=== PATIENT | male | born 1990 | race Caucasian/White ===

== ENCOUNTER 2017-02-11 17:27 | Emergency (ER) | payer BC, MEDICAID ==
[2017-02-11] MEDS ORDERED: Penicillin VK TAB* 250 MG PO ONE (19:15)
[2017-02-11] MEDS ORDERED: HYDROcodone/ACETAMIN 5-325 MG* 1 TAB PO ONE (19:15)
[2017-02-11 19:42] VITALS: BP 137/79
--- NOTE | 2017-02-11 20:34 | ED ---
Throat Pain/Nasal Congestion - HPI Summary HPI Summary: Patient arrives to ED with CC of pain over right molar radiating to the jaw and ear. Denies trismus, drooling or dysphagia. Pain is 9/10, sharp and throbbing. Denies airway compromise or SOB. Denies ear pain, eye pain, blurry vision or double vision. Otherwise healthy. Pain is worse with chewing and cold drinks, better with ibuprofen, but only improves slightly. Patient denies dental care for several years. He states he does not like dentists and is awaiting to get all his teeth pulled on next visit. He denies smoking history, but endorses chewing tobacco regularly. Denies fever. He has tried Ibuprofen 800mg without relief. Pain and inflammation has been present for 2 weeks. - History of Current Complaint Chief Complaint: EDDentalPain Time Seen by Provider: 02/11/17 18:39 Hx Obtained From: Patient Onset/Duration: Sudden Onset Severity: Moderate Associated Signs And Symptoms: Positive: Negative Cough: Nonproductive - Epiglottits Risk Factors Epiglottis Risk Factors: Negative - Allergies/Home Medications Allergies/Adverse Reactions: Allergies Allergy/AdvReac Type Severity Reaction Status Date / Time No Known Allergies Allergy Verified 02/11/17 19:34 PMH/Surg Hx/FS Hx/Imm Hx Previously Healthy: Yes Endocrine/Hematology History: Denies: Hx Diabetes Cardiovascular History: Denies: Hx Cardiac Arrest, Hx Hypertension - Immunization History Hx Pertussis Vaccination: No Immunizations Up to Date: Yes Infectious Disease History: No Infectious Disease History: Denies: Traveled Outside the [place] in Last 30 Days - Family History Known Family History: Positive: None, Other - cancer - grandfather - Social History Occupation: Employed Full-time Lives: With Family Alcohol Use: None Hx Substance Use: No Substance Use Type: Reports: None Hx Tobacco Use: No Smoking Status (MU): Never Smoked Tobacco Do You Chew or Dip Tobacco: No Review of Systems Constitutional: Negative Eyes: Negative Positive: Dental Pain Cardiovascular: Negative Respiratory: Negative Positive: no symptoms reported, see HPI Neurological: Negative Psychological: Normal All Other Systems Reviewed And Are Negative: Yes Physical Exam Triage Information Reviewed: Yes Vital Signs On Initial Exam: Initial Vitals Temp Pulse Resp BP Pulse Ox 98.1 F 73 20 142/99 99 02/11/17 17:35 02/11/17 17:35 02/11/17 17:35 02/11/17 17:35 02/11/17 17:35 Vital Signs Reviewed: Yes Appearance: Positive: Well-Appearing, Well-Nourished Skin: Positive: Warm, Skin Color Reflects Adequate Perfusion Head/Face: Positive: Normal Head/Face Inspection Eyes: Positive: EOMI, HALEY, Conjunctiva Clear Dental: Positive: Percussion Tenderness @, Gross Decay/Caries @, Dental Fracture @, Abscess @, Other - No dental abscess or lesions seen over area of concern. Erythema at site of pain. No drainage from area. Several dental caries, cavities, crowding and broken teeth throughout. Pain on palpation over mandible. No TMJ tenderness. No pain with opening and closing mouth. Poor dental hygiene. Neck: Positive: Supple Respiratory/Lung Sounds: Positive: Clear to Auscultation, Breath Sounds Present Cardiovascular: Positive: RRR, Pulses are Symmetrical in both Upper and Lower Extremities Musculoskeletal: Positive: Normal, Strength/ROM Intact Neurological: Positive: Speech Normal Psychiatric: Positive: Normal Diagnostics - Vital Signs Vital Signs Temp Pulse Resp BP Pulse Ox 02/11/17 19:41 98.6 F 58 137/79 02/11/17 17:37 97.9 F 73 20 142/85 100 02/11/17 17:35 98.1 F 73 20 142/99 99 - Laboratory Lab Statement: Any lab studies that have been ordered have been reviewed, and results considered in the medical decision making process. EENT Course/Dx - Course Course Of Treatment: No dental abscess or lesions seen over area of concern. Erythema at site of pain. No drainage from area. Several dental caries, cavities, crowding and broken teeth throughout. Pain on palpation over mandible. No TMJ tenderness. No pain with opening and closing mouth. Poor dental hygiene and outpatient dental care. Will treat for possible dental infection/abscess based on symptoms of pain and radiation to jaw and ear. No allergies. Will treat with Penicillin. Patient to follow up immediately with dentist. 2 days hydrocodone given to patient. - Differential Diagnoses Differential Diagnoses: Dental Abscess, Dental Caries, Mandibular/Maxillary Trauma, Odontogenic Pain - Diagnoses Provider Diagnoses: Dental abscess - Provider Notifications Instructed by Provider To: Admit As Inpatient Discharge - Discharge Plan Condition: Stable Disposition: HOME Prescriptions: Hydrocodone-Acetaminophen [Hydrocodone/Acetaminophen 5-325 mg] 1 tab PO Q6H PRN #8 tab MDD 4 PRN Reason: Pain Penicillin VK TAB 500 MG(NF) [Penicillin VK 500 mg Tab(NF)] 500 mg PO QID #28 tab MDD 4 Patient Education Materials: Dental Abscess (ED) Referrals: Jaclyn NGUYEN,Valeriy Lea [Primary Care Provider] - Additional Instructions: You have been diagnosed with dental pain with possible infection: Antibiotics as prescribed to you. Penicillin four times daily for 7 days. To minimize the potential for gastrointestinal intolerance, Pencillin should be taken at the start of a meal. If you have any questions about your medication, please contact us or ask your pharmacist. Salt water rinses several times per day will improve healing time. Ibuprofen 600mg three times daily with meals for discomfort. For pain not well controlled with ibuprofen, use pain medication. May use lollicaines over the area for comfort. Follow up with a dentist for routine care to prevent recurrence of infections. If fever, worsening pain or swelling develops, see your PCP, dentist or come back to the Emergency Department. Images - Images Dental: 1 - dental inflammation and possible abscess with pain
== END 2017-02-11 19:41 | disposition home or self-care (01) ==
LOC: ED 17:27
DX: K04.7 Periapical abscess without sinus (principal); K08.89 Other specified disorders of teeth and supporting structures
CPT/HCPCS: 99282; A9270-GY

== ENCOUNTER 2017-03-16 17:05 | Emergency (ER) | payer BC ==
[2017-03-16] MEDS ORDERED: Ondansetron ODT TAB* 4 MG PO ONE (18:28)
[2017-03-16] MEDS ORDERED: Ibuprofen TAB* 600 MG PO ONE (18:34)
[2017-03-16 20:32] VITALS: BP 112/73
--- NOTE | 2017-03-17 15:44 | ED ---
Ha Guzman Auryana, scribed for Oziel Robledo MD on 03/16/17 at 1956 . HPI Febrile Illness - HPI Summary HPI Summary: 26 year old male presents with fever starting this morning upon waking up. He also has a sore throat, pain with swallowing, KATZ, diffuse myalgia, nausea, and neck pain but denies any vomiting, diarrhea, cough, or any rashes. He does report a sick sister with strep and states that he has been around her often. He denies any significant past medical history. His PCP is Dr. Anaya ([place]). SHx is significant for alcohol use but denies any tobacco use. - History of Current Complaint Chief Complaint: EDFever Time Seen by Provider: 03/16/17 17:49 Hx Obtained From: Patient Onset/Duration: Started Days Ago - lastnight, Still Present Timing: Constant Initial Severity: Mild Current Severity: Moderate Pain Intensity: 5 Pain Scale Used: 0-10 Numeric Associated Signs and Symptoms: Headache, Myalgia, Sore Throat, Stiff Neck - Allergy/Home Medications Allergies/Adverse Reactions: Allergies Allergy/AdvReac Type Severity Reaction Status Date / Time No Known Allergies Allergy Verified 03/16/17 18:41 PMH/Surg Hx/FS Hx/Imm Hx Endocrine/Hematology History: Denies: Hx Diabetes Cardiovascular History: Denies: Hx Cardiac Arrest, Hx Hypertension Infectious Disease History: No Infectious Disease History: Denies: Traveled Outside the in Last 30 Days - Family History Known Family History: Positive: Other - cancer - grandfather - Social History Occupation: Employed Full-time Lives: With Family Alcohol Use: None Hx Substance Use: No Substance Use Type: Reports: None Hx Tobacco Use: No Smoking Status (MU): Never Smoked Tobacco Review of Systems Positive: Fever. Negative: Chills Eyes: Negative Positive: Sore Throat, Other - pain with swallowing Cardiovascular: Negative Negative: Chest Pain Respiratory: Negative Negative: Shortness Of Breath, Cough Positive: Nausea. Negative: Abdominal Pain, Vomiting, Diarrhea Genitourinary: Negative Negative: dysuria, hematuria Positive: Myalgia - diffuse. Negative: Edema Skin: Negative Negative: Rash Neurological: Other - no dizziness Positive: Headache Psychological: Normal All Other Systems Reviewed And Are Negative: Yes Physical Exam - Summary Physical Exam Summary: Constitutional: Well-developed, Well-nourished, Alert. (-) Distressed Skin: Warm, Dry HENT: Normocephalic; Atraumatic. Exudative pharyngitis. Tonsils have erythema with exudate. Eyes: Conjunctiva normal. Neck: Musculoskeletal ROM normal neck. (-) JVD, (-) Stridor, (-) Tracheal deviation. (+) anterior cervical lymphadenopathy, (-) meningismus Cardio: Rhythm regular, rate normal, Heart sounds normal; Intact distal pulses; The pedal pulses are 2+ and symmetric. Radial pulses are 2+ and symmetric. (-) Murmur Pulmonary/Chest wall: Effort normal. (-) Respiratory distress, (-) Wheezes, (-) Rales Abd: Soft, (-) Tenderness, (-) Distension, (-) Guarding, (-) Rebound Musculoskeletal: (-) Edema Lymph: (-) Cervical adenopathy Neuro: Alert, Oriented x3 Psych: Mood and affect Normal Triage Information Reviewed: Yes Vital Signs On Initial Exam: Initial Vitals Temp Pulse Resp BP Pulse Ox 102.2 F 113 18 111/79 99 03/16/17 17:10 03/16/17 17:10 03/16/17 17:10 03/16/17 17:10 03/16/17 17:10 Vital Signs Reviewed: Yes Diagnostics - Vital Signs Vital Signs Temp Pulse Resp BP Pulse Ox 03/16/17 17:10 102.2 F 113 18 111/79 99 - Laboratory Lab Statement: Any lab studies that have been ordered have been reviewed, and results considered in the medical decision making process. Re-Evaluation - Re-Evaluation First Eval Re-Evaluation Time: 20:28 Comment: Pt requests discharge. Discussed results, pt understands his discharge plan Course/Dx - Course Assessment/Plan: 26 year old male presents with fever starting this morning upon waking up. He also has a sore throat, pain with swallowing, KATZ, diffuse myalgia, nausea, and neck pain but denies any vomiting, diarrhea, cough, or any rashes. He does report a sick sister with strep and states that he has been around her often. Rapid strep is negative. Negative influenza screen. Pt requests discharge in the ED, and is diagnosed with pharyngitis with exudate. We will await cultures for Tx. Pt is tolerate PO. He is instructed to follow up with his PCP in the next few days. He understands his discharge plan. - Febrile Illness Differential Diagnoses: Other: - VIRAL PHARYNGITIS; STREP - Diagnoses Provider Diagnoses: Exudative pharyngitis Discharge - Discharge Plan Condition: Stable Disposition: HOME Patient Education Materials: Pharyngitis (ED) Referrals: Jaclyn NGUYEN,Valeriy Lea [Primary Care Provider] - 3 Days Additional Instructions: RETURN TO THE EMERGENCY DEPARTMENT FOR CHANGING OR WORSENING SYMPTOMS The documentation as recorded by the Ha hamlin Auryana accurately reflects the service I personally performed and the decisions made by me, Oziel Robledo MD.
== END 2017-03-16 20:31 | disposition home or self-care (01) ==
LOC: ED 17:05
DX: J02.9 Acute pharyngitis, unspecified (principal); R51 Headache; M79.1 Myalgia; M43.6 Torticollis
CPT/HCPCS: 87502; 87651; 99282; A9270-GY

== ENCOUNTER 2017-07-03 09:45 | Emergency (ER) | payer BC ==
[2017-07-03 09:52] VITALS: BP 114/56
--- NOTE | 2017-07-03 10:50 | RAD ---
Indication: Left middle finger injury. 3 views of left middle finger demonstrates fracture through the distal tuft of the distal phalanx of the third digit. Amputation of the soft tissue is noted. IMPRESSION: Amputation of the distal tip of the third digit with likely fracture of the distal tuft.
[2017-07-03] MEDS ORDERED: HYDROcodone/ACETAMIN 5-325 MG* 1 TAB PO ONE (11:27)
[2017-07-03] MEDS ORDERED: Cephalexin CAP* 500 MG PO ONE (12:14)
--- NOTE | 2017-07-03 12:30 | ED ---
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 + bleeding, + pain immediately. last tetanus within 2-3 years ago. no other complaints, injuries. Left middle finger. R handed - History of Current Complaint Chief Complaint: EDExtremityUpper Stated Complaint: CRUSH INJURY TO FINGER Time Seen by Provider: 07/03/17 12:06 Hx Obtained From: Patient, Family/Stock Worker And Deliverer - fiance sister Mechanism Of Injury: Direct Blow Onset/Duration: Started Hours Ago Timing: Constant Severity Initially: Severe Severity Currently: Moderate Pain Location: Finger - left middle Character: Sharp, Aching, Throbbing Aggravating Factor(s): Nothing Associated Signs & Symptoms: Positive: Swelling - Allergies/Home Medications Allergies/Adverse Reactions: Allergies Allergy/AdvReac Type Severity Reaction Status Date / Time No Known Allergies Allergy Verified 03/16/17 18:41 PMH/Surg Hx/FS Hx/Imm Hx Previously Healthy: Yes Endocrine/Hematology History: Denies: Hx Diabetes Cardiovascular History: Denies: Hx Cardiac Arrest, Hx Hypertension Infectious Disease History: No Infectious Disease History: Denies: Traveled Outside the [place] in Last 30 Days - Family History Known Family History: Positive: None, Other - cancer - grandfather - Social History Alcohol Use: None Hx Substance Use: No Substance Use Type: Reports: None Hx Tobacco Use: No Smoking Status (MU): Never Smoked Tobacco Review of Systems Positive: Arthralgia, Myalgia, Edema All Other Systems Reviewed And Are Negative: Yes Physical Exam - Summary Physical Exam Summary: tip of middle finger avulsed, approximately 1/4 of DIP, specimen not avialable, involving distal 1/3 of nail. nail bed intact, full ROM DIP, PIP without tenderness. + bleeding. Area soaked in warm soapt water, cleaned with hibiclens, dressed with xeroform covered with fluff, gauze, and cling wrap. tolerated well. Triage Information Reviewed: Yes Vital Signs On Initial Exam: Initial Vitals Temp Pulse Resp BP Pulse Ox 97.7 F 64 17 114/56 98 07/03/17 09:50 07/03/17 09:50 07/03/17 09:50 07/03/17 09:50 07/03/17 09:50 Vital Signs Reviewed: Yes Appearance: Positive: Well-Appearing, No Pain Distress - when finger at rest, Well-Nourished Skin: Positive: Warm, Skin Color Reflects Adequate Perfusion Head/Face: Positive: Normal Head/Face Inspection Musculoskeletal: Positive: Strength/ROM Intact - full ROMand strength of all fingers, wrist L hand, no snuff box tenderness. Neurological: Positive: Normal, Sensory/Motor Intact, Alert, Oriented to Person Place, Time - Dana Coma Scale Coma Scale Total: 15 Diagnostics - Vital Signs Vital Signs Temp Pulse Resp BP Pulse Ox 07/03/17 09:50 97.7 F 64 17 114/56 98 - Laboratory Lab Statement: Any lab studies that have been ordered have been reviewed, and results considered in the medical decision making process. Course/Dx - Course Course Of Treatment: radigoraph = fracture at DIP, ABX given, stressed importance of contining antibiotics, follow up with Ortho within 3-5 days for wound check, reviewed wound care. pain medicaiton given. - Diagnoses Differential Diagnosis/HQI/PQRI: Positive: Burn, Contusion, Fracture (Open) Provider Diagnoses: Open fracture of finger of left hand Discharge - Discharge Plan Condition: Good Disposition: HOME Prescriptions: Cephalexin CAP* [Keflex CAP*] 500 mg PO TID #30 cap oxyCODONE/Acetamin 5/325 MG* [Percocet 5/325 TAB*] 2 tab PO Q6H PRN #16 tab MDD 8 PRN Reason: Pain Patient Education Materials: Finger Fracture (ED) Forms: *Work Release Referrals: Jaclyn NGUYEN,Valeriy Lea [Primary Care Provider] - Sarah Joyner MD [Medical Doctor] - (FOllow up on Saturday for re-eval, may see any provider, referred by Essie Teresa ) Additional Instructions: - Keep dressing on until seen by Orthopedics, may be seen by any physician. May remove Saturday and re-dress as shown in ER - Percocet 1-2 as needed every 6 hours - tylenol/ motrin as needed for pain - return to ER with increased pain, fever, chills, decreased movement or redness - Do not get area wet - Take antibiotics as directed
== END 2017-07-03 12:47 | disposition home or self-care (01) ==
LOC: ED 09:45
DX: S62.603B Fracture of unspecified phalanx of left middle finger, initial encounter for open fracture (principal); W23.0XXA Caught, crushed, jammed, or pinched between moving objects, initial encounter; Y93.9 Activity, unspecified; Y92.9 Unspecified place or not applicable
CPT/HCPCS: 73140; 99282; A9270-GY

== ENCOUNTER 2018-02-09 22:21 | Emergency (ER) | payer BC ==
[2018-02-09 22:26] VITALS: BP 125/77
== END 2018-02-09 23:23 | disposition left against medical advice (07) ==
LOC: ED 22:21
DX: M54.9 Dorsalgia, unspecified (principal); Z53.21 Procedure and treatment not carried out due to patient leaving prior to being seen by health care provider

== ENCOUNTER 2018-11-17 11:45 | Emergency (ER) | payer BC ==
--- NOTE | 2018-11-17 13:49 | ED ---
Throat Pain/Nasal Congestion - HPI Summary HPI Summary: Patient is a 28-year-old male who presents emergency department for dental pain times several days. Patient states having some pain to his right bottom last molar and states that tooth broke last night and increased his pain. He denies fever, chills, nausea, vomiting, facial swelling. Has no past medical history. Is taking ibuprofen with no pain relief. Patient states he does have a dentist but has not called them yet. Symptoms are mild in severity. Touching affected area makes symptoms worse. Nothing makes symptoms better. - History of Current Complaint Chief Complaint: EDDentalPain Time Seen by Provider: 11/17/18 13:01 Hx Obtained From: Patient - Allergies/Home Medications Allergies/Adverse Reactions: Allergies Allergy/AdvReac Type Severity Reaction Status Date / Time No Known Allergies Allergy Verified 11/17/18 11:52 PMH/Surg Hx/FS Hx/Imm Hx Previously Healthy: Yes Endocrine/Hematology History: Denies: Hx Diabetes Cardiovascular History: Denies: Hx Cardiac Arrest, Hx Hypertension Infectious Disease History: No Infectious Disease History: Denies: Traveled Outside the [place] in Last 30 Days - Family History Known Family History: Positive: None, Other - cancer - grandfather - Social History Occupation: Employed Full-time Lives: Alone Alcohol Use: None Hx Substance Use: No Substance Use Type: Reports: None Hx Tobacco Use: No Smoking Status (MU): Never Smoked Tobacco Review of Systems Constitutional: Negative Negative: Fever, Chills Positive: Dental Pain Gastrointestinal: Negative Negative: Abdominal Pain, Vomiting Skin: Negative Neurological: Negative All Other Systems Reviewed And Are Negative: Yes Physical Exam Triage Information Reviewed: Yes Vital Signs On Initial Exam: Initial Vitals Temp Pulse Resp BP Pulse Ox 98.5 F 74 16 126/78 99 11/17/18 11:49 11/17/18 11:49 11/17/18 11:49 11/17/18 11:49 11/17/18 11:49 Vital Signs Reviewed: Yes Appearance: Positive: Well-Appearing - Pt. sitting on bed in NAD. Skin: Positive: Warm, Dry Head/Face: Positive: Normal Head/Face Inspection Eyes: Positive: Normal, EOMI, HALEY Dental: Positive: Other - Dental decay noted to the last bottom right molar. No drainable abscess. No swelling under tongue or submandibular edema. No trismus. No facial edema. Neck: Positive: Supple, Nontender, No Lymphadenopathy Neurological: Positive: Normal, CN Intact II-III Psychiatric: Positive: Affect/Mood Appropriate Diagnostics - Vital Signs Vital Signs Temp Pulse Resp BP Pulse Ox 11/17/18 11:49 98.5 F 74 16 126/78 99 - Laboratory Lab Statement: Any lab studies that have been ordered have been reviewed, and results considered in the medical decision making process. EENT Course/Dx - Course Course Of Treatment: Patient presenting for increased pain after dental fracture. He is afebrile and well-appearing. In general abscess on exam. Given prescriptions for penicillin and naproxen. Patient was given 1 dose of pain medication in the ER. Advised to call his dentist today for close follow- up appointment. Will return to the ER for increased pain, swelling, fever, vomiting or if concerned. - Differential Diagnoses Differential Diagnoses: Dental Abscess, Dental Caries, Gingivitis, James's Angina - Diagnoses Provider Diagnoses: Dental decay Discharge - Sign-Out/Discharge Documenting (check all that apply): Patient Departure Patient Received Moderate/Deep Sedation with Procedure: No - Discharge Plan Condition: Good Disposition: HOME Prescriptions: Naproxen [Naproxen 500 mg tab] 500 mg PO BID #20 tablet Penicillin VK 500 MG TAB(NF) [Penicillin VK 500 mg Tab] 500 mg PO QID #40 tab Patient Education Materials: Toothache (ED) Referrals: Jaclyn NGUYEN,Valeriy Lea [Primary Care Provider] - Additional Instructions: Call your dentist today for a close follow up appointment Take medication as directed Apply warm compresses to face to help with pain Can also take tylenol as directed for pain Return to ER for increased pain, fever, facial swelling or if concerned - Billing Disposition and Condition Condition: GOOD Disposition: Home
[2018-11-17] MEDS ORDERED: HYDROcodone/ACETAMIN 5-325 MG* 1 TAB PO ONE (13:55)
[2018-11-17 14:03] VITALS: BP 116/72
== END 2018-11-17 14:01 | disposition home or self-care (01) ==
LOC: ED 11:45
DX: K02.9 Dental caries, unspecified (principal)
CPT/HCPCS: 99281

== ENCOUNTER 2018-12-11 12:08 | Emergency (ER) | payer BC, MEDICAID ==
--- NOTE | 2018-12-11 14:09 | ED ---
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 Pt woke up at 0400 with abd pressure. He walked to the bathroom, and started vomiting and having a bowel movement simultaneously. He says he passed out and fell onto the floor. His temperature was 104 F. He crawled into the bath tub and and laid in cold water until he felt a little better. He went back to bed, and an hour later, the "same thing happened." His mom found him on the floor, and saw that there was a lot of fresh blood in the toilet. Associated sx : diaphoretic. He denies eating recent raw meat, untreated water. Pt denies any chills, erythema of eyes, sore throat, CP, SOB, cough, abdominal pain, dysuria, hematuria, myalgia, edema, rash. PCP is in [place]. - History of Current Complaint Chief Complaint: EDGIBleed Time Seen by Provider: 12/11/18 13:56 Stated Complaint: RECTAL BLEEDING, VOMITING PER MOM Hx Obtained From: Patient, Family/Senior Office Support Assistant Sosa - mom and fiancee Onset/Duration: Started Hours Ago, Still Present Timing: Constant Severity: Severe Current Severity: Severe Vaginal Bleeding Description: Bright Red Pain Intensity: 8 Associated Signs and Symptoms: Positive: Dizziness, Syncope, Nausea, Vomiting, Blood w/Stool, Diarrhea, Fever, Other: - pos: diaphoretic - Allergy/Home Medications Allergies/Adverse Reactions: Allergies Allergy/AdvReac Type Severity Reaction Status Date / Time No Known Allergies Allergy Verified 12/11/18 12:10 PMH/Surg Hx/FS Hx/Imm Hx Previously Healthy: Yes Endocrine/Hematology History: Denies: Hx Diabetes Cardiovascular History: Denies: Hx Cardiac Arrest, Hx Hypertension GI History: Denies: Hx Crohn's Disease Infectious Disease History: No Infectious Disease History: Denies: Traveled Outside the [place] in Last 30 Days - Family History Known Family History: Positive: Other - cancer - grandfather Family History: neg Fhx: UC, Crohn's - Social History Occupation: Unemployed - OTHER Lives: With Family Alcohol Use: None Hx Substance Use: No Substance Use Type: Reports: None Hx Tobacco Use: No Smoking Status (MU): Never Smoked Tobacco Review of Systems Positive: Fever, Skin Diaphoresis. Negative: Chills Negative: Erythema Negative: Sore Throat Negative: Chest Pain Negative: Shortness Of Breath, Cough Positive: Abdominal Pain, Vomiting, Diarrhea, Nausea, Other - pos: rectal bleeding Negative: dysuria, hematuria Negative: Myalgia, Edema Negative: Rash Neurological: Other - pos: dizziness Positive: Syncope All Other Systems Reviewed And Are Negative: Yes Physical Exam - Summary Physical Exam Summary: Constitutional: Well-developed, Well-nourished, Alert. (-) Distressed Skin: Warm, Dry HENT: Normocephalic; Atraumatic Eyes: Conjunctiva normal Neck: Musculoskeletal ROM normal neck. (-) JVD, (-) Stridor, (-) Tracheal deviation Cardio: Rhythm regular, rate normal, Heart sounds normal; Intact distal pulses; The pedal pulses are 2+ and symmetric. Radial pulses are 2+ and symmetric. (-) Murmur Pulmonary/Chest wall: Effort normal. (-) Respiratory distress, (-) Wheezes, (-) Rales Abd: Soft, lower abd tenderness; (-) epigastric tenderness, (-) Distension, (-) Guarding, (-) Rebound Musculoskeletal: (-) Edema Lymph: (-) Cervical adenopathy Neuro: Alert, Oriented x3 Psych: Mood and affect Normal Rectal: juni blood at rectum, external hemorrhoids which are not bleeding Triage Information Reviewed: Yes Vital Signs On Initial Exam: Initial Vitals Temp Pulse Resp BP Pulse Ox 98.2 F 117 19 111/87 99 12/11/18 12:09 12/11/18 12:09 12/11/18 12:09 12/11/18 12:09 12/11/18 12:09 Vital Signs Reviewed: Yes Diagnostics - Vital Signs Vital Signs Temp Pulse Resp BP Pulse Ox 12/11/18 12:09 98.2 F 117 19 111/87 99 - Laboratory Result Diagrams: 12/11/18 18:17 12/11/18 14:17 Lab Statement: Any lab studies that have been ordered have been reviewed, and results considered in the medical decision making process. - CT A/P CT CT Interpretation Completed By: Radiologist Summary of CT Findings: IMPRESSION: Several segments of small bowel in the left mid and left lower quadrant with wall thickening and evidence of featureless segment of small bowel in the left mid abdomen. There appears to be wall thickening and pericolonic fluid in the descending colon as it transitions to the sigmoid colon. Underlying colitis is likely present. Inflammatory bowel disease should BE considered. Infectious colitis should also be considered. No abscess is noted. ED provider has reviewed this report. Re-Evaluation - Re-Evaluation 1 Re-Evaluation Time: 17:53 Change: Improved Comment: Telling patient and family CT results. Will obtain repeat CBC. 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 Pt woke up at 0400 with abd pain, went to the bathroom , and started vomiting, and going diarrhea. He passed out and fell onto the floor. His temperature was 104 F. He crawled into the bath tub and and laid in cold water until he felt a little better. He went back to bed, and an hour later , the "same thing happened." His mom found him on the floor, and saw that there was a lot of fresh blood in the toilet. Associated sx: diaphoretic. He denies eating recent raw meat, untreated water. Pt denies any chills, erythema of eyes , sore throat, CP, SOB, cough, abdominal pain, dysuria, hematuria, myalgia, edema, rash. A/P CT shows "Several segments of small bowel in the left mid and left lower quadrant with wall thickening and evidence of featureless segment of small bowel in the left mid abdomen. There appears to be wall thickening and pericolonic fluid in the descending colon as it transitions to the sigmoid colon. Underlying colitis is likely present. Inflammatory bowel disease should BE considered. Infectious colitis should also be considered. No abscess is noted.". Decreased hematocrit and hemoglobin related to fluid administration, I do not suspect significant active bleeding. Will D/C patient home to f/u with ALEA Cassidy and his PCP. - Diagnoses Provider Diagnoses: Colitis, Dehydration, Rectal bleed Discharge - Sign-Out/Discharge Documenting (check all that apply): Patient Departure - D/C Patient Received Moderate/Deep Sedation with Procedure: No - Discharge Plan Condition: Stable Disposition: HOME Prescriptions: Ciprofloxacin TAB* [Cipro 750 MG Tab*] 750 mg PO BID #20 tab metroNIDAZOLE [Flagyl 500 MG TAB] 500 mg PO TID #30 tab Ondansetron ODT TAB* [Zofran 4 MG Odt TAB*] 4 mg PO Q8H PRN #10 tab.odt PRN Reason: Nausea/Vomiting Patient Education Materials: Ciprofloxacin (By mouth), Metronidazole (By mouth) , Ondansetron (By mouth), Colitis (ED) Forms: *Work Release Referrals: Barber Christensen DO [Doctor of Osteopathy] - 5 Days Jaclyn NGUYEN,Valeriy Lea [Primary Care Provider] - 3 Days Additional Instructions: Follow up with ALAE Cassidy, in 3-5 days. Follow up with your primary care provider in 2-3 days. Return to the emergency department for changing or worsening symptoms. - Billing Disposition and Condition Condition: STABLE Disposition: Home - Attestation Statements Document Initiated by Michael: Yes Documenting Scribe: Todd Myers Provider For Whom Adelaidaibe is Documenting (Include Credential): Dr. Oziel Robledo MD Scribe Attestation: Todd Guzman scribed for Dr. Oziel Robledo MD on 12/12/18 at 2224. Scribe Documentation Reviewed: Yes Provider Attestation: The documentation as recorded by the Todd hamlin accurately reflects the service I personally performed and the decisions made by , Dr. Oziel Robledo MD Status of Scribe Document: Viewed
[2018-12-11] MEDS ORDERED: Ondansetron INJ* 2 MG/ML VIAL IV ONE (14:11)
[2018-12-11] MEDS ORDERED: NS 0.9% 1000 ML** 2,000 ML IV ONE (14:11)
[2018-12-11] MEDS ORDERED: Morphine VIAL* 10 MG/ML 1 ML VIAL IV ONE (14:47)
[2018-12-11 14:48] LABS: Hematocrit 52 % (42-52); Hemoglobin 18.2 g/dl (14.0-18.0); Mean Corpuscular HGB Conc 35 g/dl (31-36); Mean Corpuscular Hemoglobin 31 pg (27-31); Mean Corpuscular Volume 87 fL (80-94); Mean Platelet Volume 8.7 fL (7.4-10.4); Platelet Count 199 10^3/ul (150-450); Red Blood Count 5.97 10^6/ul (4.00-5.40); Red Cell Distribution Width 14 % (10.5-15); White Blood Count 10.6 10^3/ul (3.5-10.8)
[2018-12-11 14:58] LABS: Albumin 4.7 g/dL (3.2-5.2); Albumin/Globulin Ratio 1.6 (1-3); BUN/Creatinine Ratio 9.8 (8-20); C Reactive Protein 7.54 mg/L (<8.01); Calcium 9.6 mg/dL (8.6-10.3); EGFR African American 84.2 (>60); EGFR Non-African American 69.6 (>60); Globulin 2.9 g/dL (2-4); Potassium 4.2 mmol/L (3.5-5.0); Total Bilirubin 0.7 mg/dL (0.2-1.0); Total Protein 7.6 g/dL (6.4-8.9)
[2018-12-11] MEDS ORDERED: Iohexol 300* (CONTRAST) 10 ML SDV IV ONE (17:01)
[2018-12-11] MEDS ORDERED: Nicotine Inhaler* 10 MG AMP INH ONE (18:16)
[2018-12-11] MEDS ORDERED: Mouth Piece, Nicotine* 1 EACH CARTRIDGE ONE (18:21)
[2018-12-11 18:37] LABS: Hematocrit 45 % (42-52); Hemoglobin 15.5 g/dl (14.0-18.0); Mean Corpuscular HGB Conc 34 g/dl (31-36); Mean Corpuscular Hemoglobin 30 pg (27-31); Mean Corpuscular Volume 88 fL (80-94); Mean Platelet Volume 8.5 fL (7.4-10.4); Platelet Count 179 10^3/ul (150-450); Red Blood Count 5.16 10^6/ul (4.00-5.40); Red Cell Distribution Width 13 % (10.5-15); White Blood Count 8.7 10^3/ul (3.5-10.8)
[2018-12-11 19:15] VITALS: BP 0/0
== END 2018-12-11 19:10 | disposition home or self-care (01) ==
LOC: ED 12:08
DX: K52.9 Noninfective gastroenteritis and colitis, unspecified (principal); E86.0 Dehydration; K62.5 Hemorrhage of anus and rectum; R55 Syncope and collapse; R50.9 Fever, unspecified
CPT/HCPCS: 36415; 74177; 80053; 83605; 85027; 86140; 96361; 96374; 96375; 99283; A9270-GY; J2270; J2405; Q9967